=== PATIENT | female | born 1970 | race Caucasian/White ===

== ENCOUNTER 2017-03-15 18:44 | Emergency (ER) | payer OTHER ==
[2017-03-15] MEDS ORDERED: HYDROcodone/Acetaminophen 10/325 mg Tablet ONE (19:36)
[2017-03-15] MEDS ORDERED: Ketorolac Tromethamine 60 MG/2 ML VIAL ONE (19:36)
[2017-03-15] MEDS ORDERED: Diazepam 5 MG TAB ONE (19:36)
--- NOTE | 2017-03-15 19:50 | RAD ---
RIGHT RIBS THREE VIEWS CHEST ONE VIEW: 03/15/17 HISTORY: Right chest wall injury. FINDINGS: No displaced rib fracture or pneumothorax are apparent. The cardiac silhouette and pulmonary vascula ture are unremarkable. Mediastinum is midline. IMPRESSION: No significant abnormalities are demonstrated. POS: [facility]
== END 2017-03-15 20:34 | disposition home or self-care (01) ==
LOC: MADERS 18:44
DX: S20.211A Contusion of right front wall of thorax, initial encounter (principal); F41.9 Anxiety disorder, unspecified; F32.9 Major depressive disorder, single episode, unspecified; W22.8XXA Striking against or struck by other objects, initial encounter
CPT/HCPCS: 96372; J1885

== ENCOUNTER 2017-06-22 14:56 | Emergency (ER) | payer OTHER ==
[2017-06-22] MEDS ORDERED: Metoclopramide HCl 10 MG/2 ML VIAL ONE (16:04)
[2017-06-22] MEDS ORDERED: Lorazepam 2 MG/ML VIAL ONE (16:04)
[2017-06-22] MEDS ORDERED: diphenhydrAMINE 50 MG/ML VIAL ONE (16:04)
== END 2017-06-22 16:25 | disposition home or self-care (01) ==
LOC: MADERS 14:56
DX: G50.0 Trigeminal neuralgia (principal); F41.9 Anxiety disorder, unspecified; F32.9 Major depressive disorder, single episode, unspecified; G43.909 Migraine, unspecified, not intractable, without status migrainosus; Z79.899 Other long term (current) drug therapy
CPT/HCPCS: 96372; J1200; J2060; J2765